=== PATIENT | male | born 1960 | race Caucasian/White ===

== ENCOUNTER 2019-03-26 06:11 | Day surgery (SDC) | payer BC ==
--- NOTE | 2019-03-24 15:11 | HP ---
HISTORY OF PRESENT ILLNESS: Bryce Castro is a 58-year-old male patient, who has not yet started dialysis. He was followed by Dr. Ledesma, Nephrology; Dr. Rajput, [facility]; and Dr. Elena Delgado, primary care physician. The patient's renal function is deteriorating. Dr. Ledesma had recommended he see me regarding peritoneal dialysis catheter placement and establishment of hemodialysis access. The patient is hoping to have a kidney transplant and has an appointment in the next 2 weeks regarding that. February 16, 2019, labs revealed white count of 14, hemoglobin of 10, platelet count of 290,000. Glucose 103, BUN 92, creatinine 5.78, GFR 10, potassium 5.1. His calcium was 9.6. The patient is working with the transplant center in [place], appointment on 03/16/2019 to see them. He has been a [employer], negotiations in the past, but has not worked due to his recent health problems recently. The patient has had a laparotomy, splenectomy, node sampling for staging Hodgkin lymphoma when he was 22 years of age and has gone through chemotherapy. 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 He reports recent imaging suggesting recurrence of that density, probably more splenic tissue. He has an appointment with Gastroenterology, [facility] to follow this. The patient has coronary artery disease, myocardial infarction on October 09, 2018 in [place], where he had a stent placed in his RCA. He had some syncopal weakness episodes with epigastric pain, initially seen at [facility], thought not to be cardiac initially, but further evaluation revealed restenosis and heart block requiring left subclavian vein pacemaker and repeat cardiac catheterization led to stent placement in December 2018 and repeat on February 08, 2019. The patient has followed Dr. Rajput and echocardiogram reveals ejection fraction of 64%. I have personally talked to Dr. Rajput and he states the patient is stable to proceed with general anesthesia for laparoscopic peritoneal dialysis catheter placement and left arm fistula placement. The patient will continue on his Effient and not discontinue that. He understands risks and benefits of the procedure and consents. MEDICATIONS: 1. Tylenol p.r.n. 2. Allopurinol 100 mg daily. 3. Amiodarone 200 mg daily. 4. Aspirin 81 mg daily. 5. Atorvastatin 40 mg daily. 6. Calcitriol 0.25 mcg nightly. 7. Colchicine 0.6 mg daily. 8. Fish oil twice daily. 9. Furosemide 20 mg every other day. 10. Glimepiride 1 mg nightly. 11. Levothyroxine 50 mcg daily. 12. Metoprolol 25 mg twice a day. 13. Nitroglycerin p.r.n., although he has not had to take this recently. 14. Pepcid daily. 15. MiraLAX daily. 16. Effient 10 mg a day. 17. Senna 8.6 mg daily. 18. Zofran daily. PAST SURGICAL HISTORY: ORIF metacarpals in 1983; inguinal hernia repair, right in 1985; staging laparotomy for Hodgkin disease with splenectomy, undergone radiation and chemotherapy; 2006, parathyroid adenoma resection, right parathyroid; plan synagogue and normal calcium; robotic prostatectomy in 2012 for prostate cancer; in 2018 surgery to remove mass on what was thought to be the pancreas, but was retained sequestered spleen. PAST MEDICAL HISTORY: Diabetes mellitus; hypertension; history of Hodgkin lymphoma, status post radiation and chemo, staging laparotomy and splenectomy. Coronary artery disease, status post myocardial infarction in [place] with catheterization and stenting in September 2018; on January 02, 2019, left subclavian vein pacemaker and stent placement. I have talked to Dr. Lucas Rajput, [facility], who follows the patient, states he is stable from a cardiac standpoint to proceed with general anesthetic for laparoscopic PD catheter and left arm fistula. As stated above, echocardiogram, 64% ejection fraction. SOCIAL HISTORY: Tobacco, none. Alcohol, none. ALLERGIES: NO ALLERGIES, ALTHOUGH HE REPORTS SIDE EFFECTS FROM PROTONIX, CHOCOLATE, AND HE AVOIDS NSAIDS AND IV CONTRAST DUE TO RENAL PROBLEMS AND HE STATES TRAMADOL CAUSES THE ROOM TO SPIN. THE PATIENT HAD A COLONOSCOPY IN 2014. RECENT CARDIAC CATHETERIZATION NOTED ABOVE. REVIEW OF SYSTEMS: Ten-point noncontributory. PHYSICAL EXAMINATION: VITAL SIGNS: Weight 193 pounds, blood pressure 109/52, pulse 71, and temperature 96.8 degrees. HEAD, EARS, EYES, NOSE, AND THROAT: Unremarkable. LUNGS: Clear to auscultation. CARDIAC: Regular rate and rhythm without murmur or gallop. ABDOMEN: Soft and nontender. No hernias. Midline scar, upper abdomen to lower abdomen below the umbilicus. EXTREMITIES: Unremarkable. Palpable radial pulses bilaterally. No demonstrable vein in the left arm. ASSESSMENT AND PLAN: 1. End-stage renal disease, approaching need for dialysis. We would plan laparoscopic peritoneal dialysis catheter placement and exploration of left arm for fistula. Should his left arm not have accessible vein, I would not place a prosthetic. He understands risks of infection, bleeding, reoperation, and consents. 2. Coronary artery disease, stable. I have talked to his director community center, Dr. Rajput, and he is stable from a cardiac standpoint to proceed with surgery. Cardiac ejection fraction is 64%. We will continue his Effient perioperatively. We will not discontinue his hold. 3. Diabetes mellitus. 4. Hypertension. Job ID: [id number]
[2019-03-25 10:58] VITALS: BMI 24.3
[2019-03-26] MEDS ORDERED: Lidocaine 1% w/Epinephrine 1:100K 20 ML VIAL ONE (06:41)
[2019-03-26] MEDS ORDERED: Bupivacaine 0.25% HCL 30 ML VIAL ONE (06:41)
[2019-03-26] MEDS ORDERED: Heparin 10,000 UNITS/1 ML VIAL ONE (06:45)
[2019-03-26] MEDS ORDERED: Fentanyl 100 MCG/2 ML VIAL ONE (07:10)
[2019-03-26 07:27] LABS: #Basophils 0.1 thou/uL (0.0-0.2); #Eosinphils 0.3 thou/uL (0.0-0.7); #Lymphocytes 2.8 thou/uL (1.20-3.40); #Neutrophils 4.7 thou/uL (1.40-6.50); %Basophils 0.6 % (0.0-1.0); %Eosinophils 3.5 % (0.0-10.0); %Lymphocytes 32.1 % (21.0-51.0); %Monocytes 10.9 % (0.0-10.0); %Neutrophils 52.9 % (42.0-75.0); Hemoglobin 10.8 g/dL (14.0-18.0); Mean Corpuscular HGB CONC 31.2 g/dL (32.0-36.0); Mean Corpuscular Hemoglobin 29.8 pg (27.0-31.0); Mean Corpuscular Volume 95.6 fL (78.0-98.0); Mean Platelet Volume 9.7 fL (7.4-10.4); Platelet Count 370 thou/uL (130-400); RBC Distribution Width 15.6 % (11.5-14.5); Red Blood Cell (RBC) Count 3.64 mill/uL (4.70-6.10); White Blood Cell (WBC) Count 8.8 thou/uL (4.8-10.8)
[2019-03-26] MEDS ORDERED: Phenylephrine HCL 10 MG/ML VIAL ONE (07:27)
[2019-03-26 07:39] LABS: Anion Gap 16 mmol/L (10-20); BUN (Urea Nitrogen) 78 mg/dL (8.4-25.7); Calc. Creatinine Clearance 24 mL/min (70-130); Calcium 10.3 mg/dL (7.8-10.44); Carbon Dioxide 22 mmol/L (22-29); Chloride 109 mmol/L (98-107); Estimated GFR-MDRD 15; Glucose 92 mg/dL (70-105); Potassium 5.2 mmol/L (3.5-5.1); Sodium 142 mmol/L (136-145)
[2019-03-26] MEDS ORDERED: SUGAMMADEX SODIUM 500 MG/5 ML VIAL ONE (08:55)
[2019-03-26] MEDS ORDERED: HYDROcodone/Acetaminophen 5/325 mg Tablet ONE (10:31)
[2019-03-26] MEDS ORDERED: PROPOFOL 200 MG/20 ML VIAL ONE (11:17)
[2019-03-26] MEDS ORDERED: Glycopyrrolate 0.2 MG/ML 5 ML SYRINGE ONE (11:17)
[2019-03-26] MEDS ORDERED: PHENYLEPHRINE-NS 100 MCG/ML 10 ML SYRINGE ONE (11:17)
[2019-03-26] MEDS ORDERED: Dexamethasone 20 MG/5 ML VIAL ONE (11:17)
[2019-03-26] MEDS ORDERED: Lidocaine 1% PF 5 ML VIAL ONE (11:17)
[2019-03-26] MEDS ORDERED: Rocuronium Bromide 10 MG/ML (10ML VIAL) ONE (11:17)
[2019-03-26] MEDS ORDERED: Ondansetron PF 4 MG/2 ML Vial ONE (11:17)
--- NOTE | 2019-03-26 14:26 | OP ---
DATE OF PROCEDURE: 03/26/2019 PREOPERATIVE DIAGNOSIS: 1. Chronic kidney disease, not yet having started dialysis. 2. Prior history of splenectomy and staging laparotomy for lymphoma. 3. Robotic distal pancreatectomy, lower midline incision. POSTOPERATIVE DIAGNOSES: 1. Chronic kidney disease, not yet having started dialysis. 2. Prior history of splenectomy and staging laparotomy for lymphoma. 3. Robotic distal pancreatectomy, lower midline incision. 4. Omental adhesions in the upper abdomen without peritoneal adhesions, inferiorly pelvis. PROCEDURES PERFORMED: 1. Laparoscopic placement of double-cuffed pigtail peritoneal dialysis catheter. 2. Laparoscopic sling suture to direct the catheter into the pelvis. The patient has a left subclavian vein pacemaker. It was discussed with him preoperatively placement of a right arm fistula; however, he declined and is seeking donor directed transplant, living related donor, and did not want a fistula at this time. ANESTHESIA: General, local with 0.5% Marcaine 30 mL mixed with 1% Xylocaine with epinephrine 20 mL. DESCRIPTION OF PROCEDURE: The patient was taken to the operating room, where under general anesthesia in supine position, abdomen was prepared with ChloraPrep and draped in routine fashion. Bilateral subcostal incision was made. Pneumoperitoneum to 15 mmHg was obtained with a Veress needle, replaced with a 5 port, laparoscope inserted. Adhesion free area noted in the left lateral abdomen just upper of midline and 5 port placed under laparoscopic visualization. There were omental adhesions to the upper abdomen, keeping the omentum out of the pelvis. There was an adhesion of the sigmoid colon to the upper abdomen, keeping it out of the pelvis. These were left in place. A stab incision was made in the left lower quadrant and a counter incision made in the periumbilical, left lower abdomen. An 8 mm port placed through this counter incision, directed caudally through the subcutaneous tissue, rectus sheath visualized laparoscopically, penetrating the abdominal wall inferiorly, placed in a sling suture with 2-0 Ethibond with a GraNee needle, transabdominal wall fixation technique to keep it directly into the pelvis. Through the stab incision exit site, a [place] dissector was inserted toward the counterincision, grasping the peritoneal dialysis catheter, bringing it out the exit site and placed an external cuff beneath the skin exit site. Subcutaneous tissue was approximated with 3-0 Monocryl, skin with subdermal 4-0 Monocryl, and [place] glue and sterile dressings applied after the port was flushed with heparinized saline solution with 1000 units of heparin per mL, 10 mL. The catheter flushed well and was noted to be direct in the pelvis. I then placed the laparoscope through the right upper quadrant port site and looked at the left upper quadrant and there was no evidence of tumor or masses (prior history of distal pancreatectomy for benign disease with recurrent mass there following). Pneumoperitoneum evacuated. All instruments were removed. All skin incisions were approximated with subdermal 4-0 Monocryl and [place] glue applied. Job ID: [id number]
== END 2019-03-26 11:25 | disposition home or self-care (01) ==
LOC: SDC 06:11
PROVIDERS: ATTEND Specialist
PROC: 0WHG43Z Insertion of Infusion Device into Peritoneal Cavity, Percutaneous Endoscopic Approach (ICD-10-PCS; principal; 2019-03-26)
DX: I12.0 Hypertensive chronic kidney disease with stage 5 chronic kidney disease or end stage renal disease (principal); E11.22 Type 2 diabetes mellitus with diabetic chronic kidney disease; N18.6 End stage renal disease; I25.10 Atherosclerotic heart disease of native coronary artery without angina pectoris; K56.50 Intestinal adhesions [bands], unspecified as to partial versus complete obstruction; Z79.01 Long term (current) use of anticoagulants; Z79.82 Long term (current) use of aspirin; Z79.84 Long term (current) use of oral hypoglycemic drugs; Z79.899 Other long term (current) drug therapy; Z88.5 Allergy status to narcotic agent; Z88.6 Allergy status to analgesic agent; Z88.8 Allergy status to other drugs, medicaments and biological substances; Z91.018 Allergy to other foods; Z91.041 Radiographic dye allergy status; Z95.0 Presence of cardiac pacemaker; Z95.5 Presence of coronary angioplasty implant and graft
CPT/HCPCS: 80048; 85025; 93005; 93010; J0690; J1100; J1644; J2001; J2370; J2405; J2704; J3010; S0020